=== PATIENT | male | born 1950 | race Caucasian/White ===

== ENCOUNTER → 2023-09-07 11:45 | Outpatient (CLI) | payer MEDICARE, SELFPAY ==
--- NOTE | ~2023-09-07 | XR_ITS ---
XR knee RT 3V DATE: 09/07/2023 12:03 INDICATION: The patellar soft tissue swelling TECHNIQUE: Bergman and standing AP and lateral views COMPARISON: None FINDINGS: Surgical clips are noted along the posteromedial aspect of the knee. No fracture or dislocation, periosteal reaction or bone destruction or significant joint space narrow ing is noted. No radiopaque intra-articular loose body or chondrocalcinosis. No significant joint eff usion is evident. Superior pole patellar enthesopathy at quadriceps tendon insertion sites. Artery calcifications. IMPRESSION: No fracture or dislocation or synovial joint effusion is noted Reviewed, dictated and finalized at location B. [place] MAINTENANCE TECHNICIAN
== END ==
PROVIDERS: PCP Family Medicine Adolescent Medicine; Visit Provider Family Medicine Adolescent Medicine
DX: M79.89 Other specified soft tissue disorders (principal)
CPT/HCPCS: 73562

== ENCOUNTER 2025-03-23 13:35 | Outpatient (CLI) | payer MEDICARE, SELFPAY ==
--- OUTSIDE RECORDS SUMMARY | 2025-03-23 13:50 | XMS_ITS | Encounter Summary ---
Author Organization [facility] Address [address] [place] [address] Care Team Providers Care Marketing Reporting Analyst Name Role Phone Hans Ventura MD Primary Care Prov ider Hans Ventura MD Primary Care Prov ider Hans Ventura MD Primary Care Prov ider Encounter Details Date Type Department Care Team (Late st Contact Info) Description 09/04/2015 Orders Only [facility] ProviderJie MD [address] [place] [id number] Social History Tobacco Use Types Packs/Day Years Used Date Smoking Tobacco: Never Assessed Sex and Gender Information Value Date Recorded Sex Assigned at Male 10/15/2018 4:28 PM CDT 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 Historical Provider [facility] Final Result documented in this encounter Visit Diagnoses Not on filedocumented in this encounter Care Teams Marketing Reporting Analyst Relationship Specialty Start Date End Date Hans Ventura MD [address] [place] [address] PCP - General 10/31/16 Hans Ventura MD [address] [place] [address] PCP - General 08/21/16 10/30/16 Hans Ventura MD [address] [place] [address] PCP - General 10/16/15 08/20/16 documented as of this encounter
--- OUTSIDE RECORDS SUMMARY | 2025-03-23 13:50 | XMS_ITS | Clinical Summary ---
Author Organization [facility] [place] [address] Address [address] [place] [address] Care Team Providers Care Siding Coreboard Inspector Name Role Phone Hans Ventura MD Primary Care Prov ider Allergies Active Allergy Reactions Criticality Noted Date Comments Sulfa (Sulfonamide Antibiotics) Stomach upset High Medications aspirin (ASPIR-81) 81 mg tablet take 1 Tablet by oral route every day 0 0 10/16/2015 Active losartan-hydroc hlorothiazide (HYZAAR) 100-25 mg per tablet take 1 tablet by oral route every day 0 0 04/17/2016 Active multivitamin capsule Take 1 capsule by mouth daily Active lecithin 1,200 mg capsule Take by mouth. Active tamsulosin (FLOMAX) 0.4 mg extended release capsule Take 1 capsule (0.4 mg total) by mouth daily 02/02/2018 Active psyllium, aspartame, SF (METAMUCIL SF) 3.4 gram packet Take 1 packet by mouth daily Active finasteride (PROSCAR) 5 mg tablet 1 tablet (5 mg total) daily 2 03/28/2019 Active omeprazole (PriLOSEC) 10 mg capsule Take by mouth daily 10/18/2019 Active atorvastatin (LIPITOR) 40 mg tablet TAKE 1 TABLET BY MOUTH EVERY DAY 90 tablet 2 06/17/2024 Active metoprolol XL (TOPROL-XL) 25 mg extended release tablet TAKE 1 TABLET (25 MG TOTAL) BY MOUTH DAILY. 90 tablet 1 10/24/2024 Active Active Problems Problem Noted Date Diagnosed Date Hand arthritis 03/15/2024 Ganglion cyst of finger of right hand 08/18/2022 Other nail disorders 08/18/2022 Coronary artery disease invo lving ambler coronary artery of ambler heart without angina pectoris 04/16/2017 S/P CABG (coronary artery bypass graft) 04/16/20 17 Chronic coronary artery disease 10/11/2015 Encounters Date Type Department Care Team Description 12/23/2024 1:00 PM CDT Office Visit [facility] Cardiology [address] [place] [id number] Frank Arrington MD Chronic coronary artery disease (Primary Dx); S/P CABG (coronary artery bypass graft) from Last 3 Months Surgical History Surgery Date Site/Laterality Comments CORONARY ARTERY BYPASS GRAFT September 07, 2015 Medical History Medical History Date Comments GERD (gastroesophageal reflux disease) Y ears ago... no specific date Heart disease Quadruple bypass surgery.. 2015 Hypertension Diagnosed about 50 years ago Cataract 2023 Benign prostatic hyperplasia Years ago... no spe cific date Family History Medical History Relation Name Comments Coronary artery disease Father Adelfo Montes De Oca Cor onary artery disease; Cause of : Coronary artery disease Early Father Adelfo Montes De Oca Heart attack Father Adelfo Montes De Oca Hypertension Father Adelfo Montes De Oca Other Mother Unknown; Relation Name Status Comments Father Adelfo Montes De Oca (Age 51) Mother Social History Tobacco Use Types Packs/Day Years Used Date Smoking Tobacco: Never Smokeless Tobacco: Never Tobacco Cessation:Counseling Given: Not Answered Alcohol Use Standard Drinks/Week Comments Yes 1 (1 standard drink = 0.6 oz pur e alcohol) Sex and Gender Information Value Date Recorded Sex Assigned at Male 10/15/2018 4:28 PM CDT 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 Gender Identity Male 10/15/2018 4:28 PM CDT Sexual Orientation Straight 10/15/2018 4: 28 PM CDT Obstetrics History Last Filed Vital Signs Vital Sign Reading Time Taken Comments Blood Pressure 146/74 12/23/2024 1:00 PM CDT Pulse 63 12/23/2024 1:00 PM CDT Temperature - - Respiratory Rate 16 04/16/2017 2:01 PM CDT Oxygen Saturation 98% 12/23/2024 1:00 PM CDT Inhaled Oxygen Concentration - - Weight 77.6 kg (171 lb) 12/23/2024 1:00 PM CDT Height 177.8 cm (5' 10) 12/23/2024 1:00 PM CDT Body Mass Index 24.54 12/23/2024 1:00 PM CDT Plan of Treatment Health Maintenance Due Date Last Done Comments Depression Screening 1950 Fall Risk Assessment 1950 Hepatitis C Screening 1950 Hepatitis B Screening 1967 Pneumococcal vaccine 65+ (1 of 2 - PCV) 02/13/1968 Well Visit 65+ 2014 DTaP/Tdap/Td Vaccine (2 - Td or Tdap) 08/01/2024 Influenza Vaccine (#1) 2025 Zoster Vaccine Completed 12/30/2018, 10/30/2018 Insurance [facility] MEDICARE GOLD [employer] MEDICARE GOLD Care Teams Siding Coreboard Inspector Relationship Specialty Start Date End Date Hans Ventura MD [address] [place] [address] PCP - General 10/31/16
--- OUTSIDE RECORDS SUMMARY | 2025-03-23 13:50 | XMS_ITS | Clinical Summary ---
Author Organization [facility] Address [address] [place] [address] Care Team Providers Care Media Clerk Name Role Phone Unavailable Primary Care Provider Unavailabl e Social History Tobacco Use Types Packs/Day Years Used Date Smoking Tobacco: Never Assessed Sex and Gender Information Value Date Recorded Sex Assigned at Not on file Legal Sex Male 5:16 PM CDT Gender Identity Not on file Sexual Orientation Not on file Plan of Treatment Health Maintenance Due Date Last Done Comments Hepatitis C 1968 DTaP, Tdap and Td Vaccines ( 1 - Tdap) 02/13/1968 Pneumococcal Vaccine: 50+ Ye ars (1 of 1 - PCV) 1999 Zoster Vaccines (1 of 2) 1999 RSV Immunization or 60+ Years (1 - 1-dose 75+ series) 02/13/2024 COVID-19 Vaccine ( - 2023-2 5 season) 2024 Meningococcal B Vaccine Aged Out No l onger eligible based on patient's age to complete this topic Meningococcal Vaccine Aged Out No sea ruby eligible based on patient's age to complete this topic RSV Immunizations Under 20 Months Aged Out No longer eligible based on patient's age to complete this topic
--- OUTSIDE RECORDS SUMMARY | 2025-03-23 13:50 | XMS_ITS | Encounter Summary ---
Author Organization [facility] Address [address] [place] [address] Care Team Providers Care Hypo Dipper Name Role Phone Hans Ventura MD Primary Care Prov ider Encounter Details Date Type Department Care Team (Late st Contact Info) Description 06/01/2024 Orders Only [facility] [place] [facility] Information Management [address] [place] [address] Scanning, Provider Social History Tobacco Use Types Packs/Day Years Used Date Smoking Tobacco: Never Smokeless Tobacco: Never Alcohol Use Standard Drinks/Week Comments Yes 1 (1 standard drink = 0.6 oz pur e alcohol) Sex and Gender Information Value Date Recorded Sex Assigned at Male 10/15/2018 4:28 PM CDT 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 Gender Identity Male 10/15/2018 4:28 PM CDT Sexual Orientation Straight 10/15/2018 4: 28 PM CDT documented as of this encounter Plan of Treatment Not on file documented as of this encounter Procedures Procedure Name Priority Date/Time Associated Diagnosis Comments SCAN - LABS 06/01/2024 documented in this encounter Results * SCAN - LABS (06/01/2024) us Provider Scanning Final Result documented in this encounter Visit Diagnoses Not on filedocumented in this encounter Care Teams Hypo Dipper Relationship Specialty Start Date End Date Hans Ventura MD [address] [place] [address] PCP - General 10/31/16 documented as of this encounter
--- OUTSIDE RECORDS SUMMARY | 2025-03-23 13:50 | XMS_ITS | Encounter Summary ---
Author Organization [facility] Address [address] [place] [address] Care Team Providers Care Office Nurse Practitioner Name Role Phone Hans Ventura MD Primary Care Prov ider Hans Ventura MD Primary Care Prov ider Encounter Details Date Type Department Care Team (Late st Contact Info) Description 08/29/2016 Orders Only [facility] ProviderJie MD [address] [place] [id number] Social History Tobacco Use Types Packs/Day Years Used Date Smoking Tobacco: Never Alcohol Use Standard Drinks/Week Comments Yes 0 (1 standard drink = 0.6 oz pur e alcohol) Sex and Gender Information Value Date Recorded Sex Assigned at Male 10/15/2018 4:28 PM CDT 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 Historical Provider [facility] Final Result documented in this encounter Visit Diagnoses Not on filedocumented in this encounter Care Teams Office Nurse Practitioner Relationship Specialty Start Date End Date Hans Ventura MD [address] [place] [address] PCP - General 10/31/16 Hans Ventura MD [address] [place] [address] PCP - General 08/21/16 10/30/16 documented as of this encounter
--- NOTE | 2025-03-31 12:18 | WPDHOLTEREM ---
Holter/Event Monitor Holter/Event Monitor Date of procedure: 03/23/25 Holter/Event Procedure: 3-7 Day Holter Monitor Indications: Other premature depolarization Conclusion: 1. 3 days holter monitor on 03/23/25. 2. Predominant rhythm is sinus rhythm. HR range 51-143 bpm; average HR 74 bpm. 3. There are rare premature supraventricular complexes, rare supraventricular couplets, and rare supraventricular triplets. There are 4 supraventricular tachycardia with fastest at 143 bpm and longest lasting 11 beats. 5. There are intermittent premature ventricular complexes at burden of 5.3%, rare ventricular couplets, and rare ventricular triplets, longest ventricular bigeminy is 2 minutes and 55 seconds and longest ventricular trigeminy is 1 minute and 29 seconds. No ventricular tachycardia. 6. No significant pauses greater than 3 seconds. 7. No symptoms available for correlation.
== END 2025-03-23 13:36 | disposition home or self-care (01) ==
PROVIDERS: PCP Family Medicine Adolescent Medicine; Visit Provider Family Medicine Adolescent Medicine
DX: I49.1 Atrial premature depolarization (principal); I47.10 Supraventricular tachycardia, unspecified; I49.3 Ventricular premature depolarization; R00.8 Other abnormalities of heart beat
CPT/HCPCS: 93242